=== PATIENT | female | born 1945 | race Caucasian/White ===

== ENCOUNTER 2023-12-16 13:00 | Inpatient (IN) ==
[2023-12-16] MEDS ORDERED: ZOFRAN INJ 4 MG VIAL IVP PRN (17:19)
[2023-12-16 17:25] LABS: BASOPHILS % (AUTO) 0.2 % (0.2-1.0); EOSINOPHILS # (AUTO) 0.1 x10^3/uL (0.0-0.2); HEMATOCRIT 31.3 % (36.0-47.0); HEMOGLOBIN 10.6 g/dL (12.0-16.0); LYMPHOCYTES # (AUTO) 1.4 X10^3/uL (1.3-2.9); LYMPHOCYTES % (AUTO) 16.8 % (21.0-51.0); MEAN CORPUSCULAR HEMOGLOBIN 31.8 pg (27.0-34.0); MEAN CORPUSCULAR HGB CONC 33.8 g/dL (33.0-35.0); MEAN CORPUSCULAR VOLUME 93.9 fL (80.0-100.0); MEAN PLATELET VOLUME 9.2 fL (7.4-11.0); MONOCYTES # (AUTO) 0.5 x10^3/uL (0.3-0.8); MONOCYTES % (AUTO) 6.7 % (0.0-13.0); NEUTROPHILS # (AUTO) 6.1 x10^3/uL (2.2-4.8); NEUTROPHILS % (AUTO) 75.3 % (42.0-75.0); PLATELET COUNT 205 X10^3/uL (150.0-450.0); RED BLOOD COUNT 3.33 X10^6/uL (3.5-5.4); RED CELL DISTRIBUTION WIDTH 13.6 % (11.6-16.5); WHITE BLOOD COUNT 8.1 X10^3/uL (3.6-10.0)
[2023-12-16] MEDS: NS 1,000 ML IV 1,000 ML IV SCH (17:30)
[2023-12-16] MEDS: ROCEPHIN VIAL 1 GRAM 1 G in NS 100 ML IV 100 ML IV SCH (17:30)
[2023-12-16 17:31] LABS: ALANINE AMINOTRANSFERASE 28 Units/L (12-78); ALBUMIN 3.3 g/dL (3.4-5.0); ALKALINE PHOSPHATASE 57 Units/L (46-116); ASPARTATE AMINO TRANSFERASE 23 Units/L (15-37); BLOOD UREA NITROGEN 83 mg/dL (7-18); CALCIUM 9.4 mg/dL (8.5-10.1); CARBON DIOXIDE 23.3 mmol/L (21-32); CHLORIDE 105 mmol/L (98-107); GLUCOSE 107 mg/dL (65-99); SODIUM 137 mmol/L (136-145); TOTAL PROTEIN 6.9 g/dL (6.4-8.2); eGFR NON BLACK RACES 17 (>60)
[2023-12-16 17:57] LABS: BAND NEUTROPHILS % 1 % (0-10); PLATELET MORPHOLOGY COMMENT NORMAL (NORMAL)
[2023-12-16] MEDS: NovoLIN R (or HumuLIN R) IV STA (18:23)
[2023-12-16] MEDS: NS 1,000 ML IV 1,000 ML IV ONE (18:24)
[2023-12-16] MEDS: D50W ABBOJECT SYR IV STA (18:24)
[2023-12-16] MEDS: KAYEXALATE SUSP PO ONE (18:24)
[2023-12-16 18:49] LABS: FREE T4 (FREE THYROXINE) 0.91 ng/dL (0.76-1.46); TSH (3RD GENERATION) 3.255 uIU/mL (0.358-3.74)
[2023-12-16] MEDS ORDERED: CONSULT PHARMACY - POTASSIUM & MAGNESIUM XX SCH (19:00)
[2023-12-16] MEDS: MAG-OX TAB PO ONE (19:25)
[2023-12-16] MEDS: LOPRESSOR TAB 25 MG PO SCH (20:14)
[2023-12-16 20:29] LABS: BILIRUBIN,URINE NEGATIVE (NEGATIVE); BLOOD/HEMOGLOBIN,URINE NEGATIVE (NEGATIVE); GLUCOSE, URINE 1+ (NEGATIVE); KETONES,URINE NEGATIVE (NEGATIVE); LEUKOCYTE ESTERASE ,URINE NEGATIVE (NEGATIVE); NITRITES,URINE NEGATIVE (NEGATIVE); PROTEIN,URINE NEGATIVE (NEGATIVE); UROBILINOGEN,URINE NORMAL (NORMAL)
[2023-12-16 20:41] LABS: APPEARANCE,URINE CLEAR (CLEAR); COLOR,URINE YELLOW (YELLOW)
--- NOTE | 2023-12-17 05:13 | RAD ---
EXAM: CHEST, 1 VIEW HISTORY: ams,weakness; COMPARISON: None available. FINDINGS: The trachea is midline. The cardiac silhouette is unremarkable . The lungs are clear without focal infiltrate or effusion. The bony thorax is unremarkable. IMPRESSION: No acute cardiopulmonary disease. THIS IS AN ELECTRONICALLY VERIFIED FINAL REPORT 12/17/2023 5:10 AM - Electronically signed by Rickey Bourne MD
[2023-12-17] MEDS: SYNTHROID 75 mcg TAB PO SCH (05:32)
[2023-12-17 07:21] LABS: BASOPHILS % (AUTO) 0.8 % (0.2-1.0); EOSINOPHILS # (AUTO) 0.1 x10^3/uL (0.0-0.2); EOSINOPHILS % (AUTO) 1.3 % (0.9-2.9); HEMATOCRIT 28.3 % (36.0-47.0); HEMOGLOBIN 9.5 g/dL (12.0-16.0); LYMPHOCYTES # (AUTO) 1.9 X10^3/uL (1.3-2.9); LYMPHOCYTES % (AUTO) 30.8 % (21.0-51.0); MEAN CORPUSCULAR HEMOGLOBIN 31.4 pg (27.0-34.0); MEAN CORPUSCULAR HGB CONC 33.4 g/dL (33.0-35.0); MEAN PLATELET VOLUME 9.3 fL (7.4-11.0); MONOCYTES # (AUTO) 0.5 x10^3/uL (0.3-0.8); MONOCYTES % (AUTO) 7.3 % (0.0-13.0); NEUTROPHILS # (AUTO) 3.8 x10^3/uL (2.2-4.8); NEUTROPHILS % (AUTO) 59.8 % (42.0-75.0); PLATELET COUNT 152 X10^3/uL (150.0-450.0); RED BLOOD COUNT 3.01 X10^6/uL (3.5-5.4); RED CELL DISTRIBUTION WIDTH 13.8 % (11.6-16.5); WHITE BLOOD COUNT 6.3 X10^3/uL (3.6-10.0)
[2023-12-17 07:30] LABS: ALANINE AMINOTRANSFERASE 19 Units/L (12-78); ALBUMIN 2.5 g/dL (3.4-5.0); ALKALINE PHOSPHATASE 44 Units/L (46-116); ASPARTATE AMINO TRANSFERASE 20 Units/L (15-37); BLOOD UREA NITROGEN 65 mg/dL (7-18); CALCIUM 8.4 mg/dL (8.5-10.1); CARBON DIOXIDE 19.8 mmol/L (21-32); CHLORIDE 111 mmol/L (98-107); COR CA(FOR HYPOALB) 9.6 mg/dL (8.5-10.1); CREATININE 2.18 mg/dL (0.55-1.02); GLUCOSE 76 mg/dL (65-99); SODIUM 140 mmol/L (136-145); TOTAL PROTEIN 5.6 g/dL (6.4-8.2); eGFR NON BLACK RACES 23 (>60)
[2023-12-17 07:35] LABS: POTASSIUM 6.7 mmol/L (3.5-5.1)
--- NOTE | 2023-12-17 08:30 | DR.H&P ---
H&P History & Physical for Day of: H&P Date: 12/16/23 Chief Complaint Chief Complaint: weakness, "urinary tract infection" fall Allergies Allergies Allergy/AdvReac Type Severity Reaction Status Date / Time No Known Drug Allergies Allergy Verified 11/23/18 13:38 History of Present Illness History of Present Illness: PT IS 78 WF, DIRECT ADMIT FOR FAILED OUTPT TREATMENT OF UTI, WEAKNESS WITH RECENT FALL. PT HAS BEEN CONFUSED, FAMILY RELATES TO UTI AND POOR PO INTAKE. PT HAS PMH OF RIGHT HIP REPLACEMENT RECENTLY AND FAMILY CONCERNED ABOUT HIP DUE TO FALLS. PT ALSO HAS HX OF HTN, GERD, ANEMIA AND OA. PT ADMITTED FOR EVALUATION AND TREATMENT OF ACUTE ILLNESS. Past Medical History Past Medical History: GERD, Hypertension and Hypothyroidism Past Surgical History Surgical History: Cholecystectomy Family History Family Medical History: Diabetes Mellitus Social History Does patient currently use any type of tobacco product: No Have you used tobacco products in the last 12 months: No Type of Tobacco Use: None Does any household member use tobacco: No Alcohol Use: None Drug Use: None Medications Home Medications: Home Medications Medication Instructions Recorded Confirmed Type aspirin 81 mg tablet,delayed 81 mg PO DAILY 11/23/18 12/16/23 History release (Kylah Low Dose Aspirin) levothyroxine 75 mcg tablet 75 mg PO DAILY 11/23/18 12/16/23 History cholecalciferol (vitamin D3) 1,250 1,250 mcg PO QWEEK 12/16/23 12/16/23 History mcg (50,000 unit) capsule clopidogrel 75 mg tablet 75 mg PO DAILY 12/16/23 12/16/23 History folic acid 1 mg tablet 1 mg PO DAILY 12/16/23 12/16/23 History magnesium oxide 400 mg (241.3 mg 400 mg PO QDAY 12/16/23 12/16/23 History magnesium) tablet metoprolol tartrate 25 mg tablet 12.5 mg PO BID 12/16/23 12/16/23 History penicillin V potassium 500 mg 500 mg PO TID 12/16/23 12/16/23 History tablet spironolactone 25 mg tablet 25 mg PO DAILY 12/16/23 12/16/23 History Labs 12/17/23 07:08 12/17/23 07:08 Labs: Laboratory WBC 6.3 X10^3/uL (3.6-10.0) 12/17/23 07:08 RBC 3.01 X10^6/uL (3.5-5.4) L 12/17/23 07:08 Hgb 9.5 g/dL (12.0-16.0) L 12/17/23 07:08 Hct 28.3 % (36.0-47.0) L 12/17/23 07:08 MCV 94.0 fL (80.0-100.0) 12/17/23 07:08 MCH 31.4 pg (27.0-34.0) 12/17/23 07:08 MCHC 33.4 g/dL (33.0-35.0) 12/17/23 07:08 RDW 13.8 % (11.6-16.5) 12/17/23 07:08 Plt Count 152 X10^3/uL (150.0-450.0) 12/17/23 07:08 Plt Count Comment Adequate (ADEQUATE) 12/16/23 16:38 MPV 9.3 fL (7.4-11.0) 12/17/23 07:08 Neut % (Auto) 59.8 % (42.0-75.0) 12/17/23 07:08 Lymph % (Auto) 30.8 % (21.0-51.0) 12/17/23 07:08 [place] % (Auto) 7.3 % (0.0-13.0) 12/17/23 07:08 Eos % (Auto) 1.3 % (0.9-2.9) 12/17/23 07:08 Baso % (Auto) 0.8 % (0.2-1.0) 12/17/23 07:08 Neut # (Auto) 3.8 x10^3/uL (2.2-4.8) 12/17/23 07:08 Lymph # (Auto) 1.9 X10^3/uL (1.3-2.9) 12/17/23 07:08 [place] # (Auto) 0.5 x10^3/uL (0.3-0.8) 12/17/23 07:08 Eos # (Auto) 0.1 x10^3/uL (0.0-0.2) 12/17/23 07:08 Baso # (Auto) 0.0 X10^3/uL (0.0-0.1) 12/17/23 07:08 Absolute Nucleated RBC 0.1 /100WBC 12/17/23 07:08 Total Counted 100 12/16/23 16:38 Neutrophils % (Manual) 68 % (39-76) 12/16/23 16:38 Band Neutrophils % 1 % (0-10) 12/16/23 16:38 Lymphocytes % (Manual) 30 % (13-43) 12/16/23 16:38 Monocytes % (Manual) 1 % (4-9) L 12/16/23 16:38 Plt Morphology Comment Normal (NORMAL) 12/16/23 16:38 RBC Morphology Normal (NORMAL) 12/16/23 16:38 Sodium 140 mmol/L (136-145) 12/17/23 07:08 Corrected Sodium TNP 12/17/23 07:08 Potassium 6.7 mmol/L (3.5-5.1) H* 12/17/23 07:08 Chloride 111 mmol/L (98-107) H 12/17/23 07:08 Carbon Dioxide 19.8 mmol/L (21-32) L 12/17/23 07:08 BUN 65 mg/dL (7-18) H 12/17/23 07:08 Creatinine 2.18 mg/dL (0.55-1.02) H 12/17/23 07:08 Est GFR (MDRD) Af Amer 28 (>60) L 12/17/23 07:08 Est GFR (MDRD) Non-Af 23 (>60) L 12/17/23 07:08 Glucose 76 mg/dL (65-99) 12/17/23 07:08 Lactic Acid 0.5 mmol/L (0.4-2.0) 12/16/23 16:38 Calcium 8.4 mg/dL (8.5-10.1) L 12/17/23 07:08 Corrected Calcium 9.6 mg/dL (8.5-10.1) 12/17/23 07:08 Magnesium 1.6 mg/dL (2.0-2.9) L 12/17/23 07:08 Total Bilirubin 0.20 mg/dL (0.2-1.0) 12/17/23 07:08 AST 20 Units/L (15-37) 12/17/23 07:08 ALT 19 Units/L (12-78) 12/17/23 07:08 Alkaline Phosphatase 44 Units/L (46-116) L 12/17/23 07:08 Total Protein 5.6 g/dL (6.4-8.2) L 12/17/23 07:08 Albumin 2.5 g/dL (3.4-5.0) L 12/17/23 07:08 Globulin 3.1 g/dL (2.5-4.5) 12/17/23 07:08 Albumin/Globulin Ratio 0.8 Ratio (1.1-2.1) L 12/17/23 07:08 Free T4 0.91 ng/dL (0.76-1.46) 12/16/23 16:38 TSH 3rd Generation 3.255 uIU/mL (0.358-3.74) 12/16/23 16:38 Specimen Type Clean catch urine 12/16/23 20:06 Urine Color Yellow (YELLOW) 12/16/23 20:06 Urine Appearance Clear (CLEAR) 12/16/23 20:06 Urine pH 5.0 (5.0 - 8.0) 12/16/23 20:06 Ur Specific [place] 1.015 (1.000-1.030) 12/16/23 20:06 Urine Protein Negative (NEGATIVE) 12/16/23 20:06 Urine Glucose (UA) 1+ (NEGATIVE) 12/16/23 20:06 Urine Ketones Negative (NEGATIVE) 12/16/23 20:06 Urine Blood Negative (NEGATIVE) 12/16/23 20:06 Urine Nitrite Negative (NEGATIVE) 12/16/23 20:06 Urine Bilirubin Negative (NEGATIVE) 12/16/23 20:06 Urine Urobilinogen Normal (NORMAL) 12/16/23 20:06 Ur Leukocyte Esterase Negative (NEGATIVE) 12/16/23 20:06 Review of Systems Constitutional: Weakness Eyes: No Symptoms Reported ENT: No Symptoms Reported Respiratory: Shortness of Breath Cardiovascular: Palpitations Gastrointestinal: Other (POOR PO INTAKE) Genitourinary: Dysuria and Other (RECENT UTI) Musculoskeletal: Back Pain and Leg Pain Skin: No Symptoms Reported Neurological: Weakness and Confusion (MILD) Physical Exam Vital Signs: Vital Signs Temperature 98.0 F Temperature 97.8 F Pulse Rate [Left Brachial] 62 Pulse Rate [Left Brachial] 67 Respiratory Rate 18 Respiratory Rate 18 Blood Pressure [Left Arm] 103/51 Blood Pressure [Left Arm] 114/55 O2 Sat by Pulse Oximetry 97 O2 Sat by Pulse Oximetry 96 Oriented: Person Eyes: Normal Ear: Normal Nose: Normal Throat: Normal Respiratory: RLL Diminished and LLL Diminished Cardiovascular: Normal Auscultation: Bowel Sounds: Normal Palpation: Normal Tenderness: Suprapubic and Mild Skin: Decreased Turgur Musculoskeletal: Back:Lumbar Affect: Depressed Speech Pattern: Clear Assessment/Plan (1) Urinary tract infection: Narrative Support Text: ADMIT, URINE CULTURE AND BLOOD CULTURE ON ADMISSION CXR, HOLD ALDACTONE HOME MEDICATION KAYEXALATE PO PER DR JAMES'S ORDERS BP CONTROL, IV HYDRATION I&OS Status: Acute (2) Confusion: Status: Acute (3) Weakness: Status: Acute (4) Acute hyperkalemia: Status: Acute (5) Dehydration: Status: Acute (6) GERD (gastroesophageal reflux disease): Status: Acute
--- NOTE | 2023-12-17 08:37 | EKG ---
Test Reason : hyperkalemia Blood Pressure : */* mmHG Vent. Rate : 133 BPM Atrial Rate : 133 BPM P-R Int : * ms QRS Dur : 124 ms QT Int : 278 ms P-R-T Axes : * -41 -85 degrees QTc Int : 413 ms bad baseline artifact- NSR 65 Left axis deviation Abnormal ECG No previous ECGs available Confirmed by Jose C Cooper MD ([id number]) on 12/17/2023 9:31:40 AM Referred By: Confirmed By: Jose C Cooper MD
[2023-12-17] MEDS ORDERED: VITAMIN D3 125 mcg (5,000 UNITS) PO SCH (09:00)
[2023-12-17] MEDS ORDERED: ALDACTONE TAB 25 MG PO SCH (09:00)
[2023-12-17] MEDS: FOLIC ACID TAB 1 MG PO SCH (10:00)
[2023-12-17] MEDS: PLAVIX PO SCH (10:00)
[2023-12-17] MEDS: KAYEXALATE SUSP PO NR (10:00)
[2023-12-17] MEDS: MAG-OX TAB PO SCH (10:15)
--- NOTE | 2023-12-17 10:26 | CT ---
EXAM:BRAIN W/O CONHISTORY:increased weakness, confusion ;COMPARISON:Head CT 09/21/2023TECHNIQUE:Multiple CT axial images of the head were obtained without IV contrast. Coronal and sagittal images were reconstructed. Dose reduction techniques included Automated Exposure Control (AEC) and adjustment of mA and kV.FINDINGS:Age-related findings include central and cortical atrophy with areas of low density in the periventricular white matter compatible with micro-ischemic changes. There is no mass, shift, or hemorrhage. Cerebellar tonsils are at an appropriate level. No fluid in the sinuses or mucosal thickening to suggest sinusitis. There is no mastoid effusion.IMPRESSION:1. No acute findingTHIS IS AN ELECTRONICALLY VERIFIED FINAL REPORT12/17/2023 10:23 AM - Electronically signed by Bryce Brito MD
--- NOTE | 2023-12-17 12:11 | PCM.PROG ---
Progress Note Progress Note for Day of Date of Exam: 12/17/23 Subjective Subjective: PT IS 78 WF, DIRECT ADMIT YESTERDAY FOR FAILED OUTPT TREATMENT OF UTI, WEAKNESS WITH RECENT FALL. PT HAS BEEN CONFUSED, FAMILY RELATES TO UTI AND POOR PO INTAKE. PT HAS PMH OF RIGHT HIP REPLACEMENT RECENTLY AND FAMILY CONCERNED ABOUT HIP DUE TO FALLS. UPON ADMISSION, PT LABS REVEALED WBC 8.1, HGB 10.6. POTASSIUM 7.0, BUN 83/CREATININE 2.9, MAGNESIUM 1.7. WE TREATED THE CRITICAL POTASSIUM LEVEL WITH AMP OF D50, 5 UNITS OF REGULAR INSULIN IV, 15G KAYEXALATE, AND 1L BOLUS. WE ALSO HELD SPIROLACTONE AND STARTED THE PATIENT ON MAGNESIUM REPLACEMENT, ABX, IV HYDRATION. WE OBTAINED A CHEST XRAY THAT SHOWED NO ACUTE CARDIOPULMONARY DISEASE. WE ALSO OBTAIEND A UA- +1 GLUCOSE, OTHERWISE NORMAL AND AN EKG THAT SHOWED "BAD BASELINE ARTIFACT- NSR 65, LEFT AXIS DEVIATION, ABNORMAL ECG, NO PREVIOUS ECGS AVALIABLE." BLOOD/URINE CULTURES AND STOOL STUDIES ORDERED AND PENDING AT THIS TIME. AM LABS SHOWED WBC, 6.3, HGB 9.5, POTASSIUM 6.7, BUN 65/CREATININE 2.18, MAGNESIUM 1.6. MORNING VITALS: 103 /51-62-18-98.0-97% ROOM AIR. Past Medical Family Social History Allergies: Allergies No Known Drug Allergies Allergy (Verified 11/23/18 13:38) Vital Signs and I&O's Vital Signs: Vital Signs Temperature 98.0 F Temperature 97.8 F Pulse Rate [Left Brachial] 62 Pulse Rate [Left Brachial] 67 Respiratory Rate 18 Respiratory Rate 18 Blood Pressure [Left Arm] 103/51 Blood Pressure [Left Arm] 114/55 O2 Sat by Pulse Oximetry 97 O2 Sat by Pulse Oximetry 96 Intake and Output: Intake & Output 12/14/23 12/15/23 12/16/23 12/17/23 11:59 11:59 11:59 11:59 Intake Total 2406 / 2406 Output Total 300 / 300 Balance 2105 / 2105 Physical Exam Oriented: Person Eyes: Normal Ear: Normal Nose: Normal Throat: Normal Cardiovascular: Normal Auscultation: Bowel Sounds: Normal Tenderness: Suprapubic and Mild Skin: Decreased [place] Musculoskeletal: Back:Lumbar Affect: Depressed Speech Pattern: Clear Laboratory and Diagnostics 12/17/23 07:08 12/17/23 07:08 Labs: Laboratory WBC 6.3 X10^3/uL (3.6-10.0) 12/17/23 07:08 RBC 3.01 X10^6/uL (3.5-5.4) L 12/17/23 07:08 Hgb 9.5 g/dL (12.0-16.0) L 12/17/23 07:08 Hct 28.3 % (36.0-47.0) L 12/17/23 07:08 MCV 94.0 fL (80.0-100.0) 12/17/23 07:08 MCH 31.4 pg (27.0-34.0) 12/17/23 07:08 MCHC 33.4 g/dL (33.0-35.0) 12/17/23 07:08 RDW 13.8 % (11.6-16.5) 12/17/23 07:08 Plt Count 152 X10^3/uL (150.0-450.0) 12/17/23 07:08 Plt Count Comment Adequate (ADEQUATE) 12/16/23 16:38 MPV 9.3 fL (7.4-11.0) 12/17/23 07:08 Neut % (Auto) 59.8 % (42.0-75.0) 12/17/23 07:08 Lymph % (Auto) 30.8 % (21.0-51.0) 12/17/23 07:08 [place] % (Auto) 7.3 % (0.0-13.0) 12/17/23 07:08 Eos % (Auto) 1.3 % (0.9-2.9) 12/17/23 07:08 Baso % (Auto) 0.8 % (0.2-1.0) 12/17/23 07:08 Neut # (Auto) 3.8 x10^3/uL (2.2-4.8) 12/17/23 07:08 Lymph # (Auto) 1.9 X10^3/uL (1.3-2.9) 12/17/23 07:08 [place] # (Auto) 0.5 x10^3/uL (0.3-0.8) 12/17/23 07:08 Eos # (Auto) 0.1 x10^3/uL (0.0-0.2) 12/17/23 07:08 Baso # (Auto) 0.0 X10^3/uL (0.0-0.1) 12/17/23 07:08 Absolute Nucleated RBC 0.1 /100WBC 12/17/23 07:08 Total Counted 100 12/16/23 16:38 Neutrophils % (Manual) 68 % (39-76) 12/16/23 16:38 Band Neutrophils % 1 % (0-10) 12/16/23 16:38 Lymphocytes % (Manual) 30 % (13-43) 12/16/23 16:38 Monocytes % (Manual) 1 % (4-9) L 12/16/23 16:38 Plt Morphology Comment Normal (NORMAL) 12/16/23 16:38 RBC Morphology Normal (NORMAL) 12/16/23 16:38 Sodium 140 mmol/L (136-145) 12/17/23 07:08 Corrected Sodium TNP 12/17/23 07:08 Potassium 6.7 mmol/L (3.5-5.1) H* 12/17/23 07:08 Chloride 111 mmol/L (98-107) H 12/17/23 07:08 Carbon Dioxide 19.8 mmol/L (21-32) L 12/17/23 07:08 BUN 65 mg/dL (7-18) H 12/17/23 07:08 Creatinine 2.18 mg/dL (0.55-1.02) H 12/17/23 07:08 Est GFR (MDRD) Af Amer 28 (>60) L 12/17/23 07:08 Est GFR (MDRD) Non-Af 23 (>60) L 12/17/23 07:08 Glucose 76 mg/dL (65-99) 12/17/23 07:08 Lactic Acid 0.5 mmol/L (0.4-2.0) 12/16/23 16:38 Calcium 8.4 mg/dL (8.5-10.1) L 12/17/23 07:08 Corrected Calcium 9.6 mg/dL (8.5-10.1) 12/17/23 07:08 Magnesium 1.6 mg/dL (2.0-2.9) L 12/17/23 07:08 Total Bilirubin 0.20 mg/dL (0.2-1.0) 12/17/23 07:08 AST 20 Units/L (15-37) 12/17/23 07:08 ALT 19 Units/L (12-78) 12/17/23 07:08 Alkaline Phosphatase 44 Units/L (46-116) L 12/17/23 07:08 Creatine Kinase 40 Units/L (26-192) 12/17/23 07:08 Troponin I High Sens 16.9 ng/L (4.0-60.0) 12/17/23 07:08 Total Protein 5.6 g/dL (6.4-8.2) L 12/17/23 07:08 Albumin 2.5 g/dL (3.4-5.0) L 12/17/23 07:08 Globulin 3.1 g/dL (2.5-4.5) 12/17/23 07:08 Albumin/Globulin Ratio 0.8 Ratio (1.1-2.1) L 12/17/23 07:08 Free T4 0.91 ng/dL (0.76-1.46) 12/16/23 16:38 TSH 3rd Generation 3.255 uIU/mL (0.358-3.74) 12/16/23 16:38 Specimen Type Clean catch urine 12/16/23 20:06 Urine Color Yellow (YELLOW) 12/16/23 20:06 Urine Appearance Clear (CLEAR) 12/16/23 20:06 Urine pH 5.0 (5.0 - 8.0) 12/16/23 20:06 Ur Specific [place] 1.015 (1.000-1.030) 12/16/23 20:06 Urine Protein Negative (NEGATIVE) 12/16/23 20:06 Urine Glucose (UA) 1+ (NEGATIVE) 12/16/23 20:06 Urine Ketones Negative (NEGATIVE) 12/16/23 20: Urine Blood Negative (NEGATIVE) 12/16/23 20: Urine Nitrite Negative (NEGATIVE) 12/16/23 20: Urine Bilirubin Negative (NEGATIVE) 12/16/23 20:06 Urine Urobilinogen Normal (NORMAL) 12/16/23 20:06 Ur Leukocyte Esterase Negative (NEGATIVE) 12/16/23 20:06 Plan (1) Urinary tract infection: Status: Acute Plan: REPEAT KAYEXALATE 15G X1DOSE, OBTAIN CT HEAD, XRAY RIGHT HIP, CONSULT PT FOR EVAL. CONTINUE IV HYDRATION, ABX, CONTINUE HOME MEDICATIONS. (2) Confusion: Status: Acute (3) Weakness: Status: Acute (4) Acute hyperkalemia: Status: Acute (5) Dehydration: Status: Acute (6) GERD (gastroesophageal reflux disease): Status: Acute
[2023-12-17 18:47] VITALS: BMI 26.2
[2023-12-17 19:35] LABS: CRYPTOSPORIDIUM PARVUM ANTIGEN NEGATIVE (NEGATIVE); GIARDIA LAMBLIA ANTIGEN NEGATIVE (NEGATIVE)
[2023-12-17] MEDS: ASPIRIN 81 MG CHEWTAB PO SCH (20:11)
[2023-12-18 05:26] LABS: BASOPHILS % (AUTO) 0.7 % (0.2-1.0); EOSINOPHILS # (AUTO) 0.1 x10^3/uL (0.0-0.2); EOSINOPHILS % (AUTO) 2.2 % (0.9-2.9); HEMATOCRIT 27.9 % (36.0-47.0); HEMOGLOBIN 9.3 g/dL (12.0-16.0); LYMPHOCYTES # (AUTO) 1.3 X10^3/uL (1.3-2.9); LYMPHOCYTES % (AUTO) 23.3 % (21.0-51.0); MEAN CORPUSCULAR HEMOGLOBIN 31.3 pg (27.0-34.0); MEAN CORPUSCULAR HGB CONC 33.3 g/dL (33.0-35.0); MEAN PLATELET VOLUME 9.2 fL (7.4-11.0); MONOCYTES # (AUTO) 0.5 x10^3/uL (0.3-0.8); MONOCYTES % (AUTO) 8.6 % (0.0-13.0); NEUTROPHILS # (AUTO) 3.6 x10^3/uL (2.2-4.8); NEUTROPHILS % (AUTO) 65.2 % (42.0-75.0); PLATELET COUNT 150 X10^3/uL (150.0-450.0); RED BLOOD COUNT 2.96 X10^6/uL (3.5-5.4); RED CELL DISTRIBUTION WIDTH 13.5 % (11.6-16.5); WHITE BLOOD COUNT 5.5 X10^3/uL (3.6-10.0)
[2023-12-18 05:52] LABS: ALANINE AMINOTRANSFERASE 18 Units/L (12-78); ALBUMIN 2.4 g/dL (3.4-5.0); ALKALINE PHOSPHATASE 39 Units/L (46-116); ASPARTATE AMINO TRANSFERASE 16 Units/L (15-37); BLOOD UREA NITROGEN 45 mg/dL (7-18); CALCIUM 8.3 mg/dL (8.5-10.1); CARBON DIOXIDE 24.5 mmol/L (21-32); CHLORIDE 109 mmol/L (98-107); COR CA(FOR HYPOALB) 9.6 mg/dL (8.5-10.1); CREATININE 1.75 mg/dL (0.55-1.02); GLUCOSE 81 mg/dL (65-99); MAGNESIUM 1.3 mg/dL (2.0-2.9); SODIUM 140 mmol/L (136-145); TOTAL PROTEIN 5.5 g/dL (6.4-8.2); eGFR NON BLACK RACES 30 (>60)
[2023-12-18 06:07] LABS: POTASSIUM 5.8 mmol/L (3.5-5.1)
--- NOTE | 2023-12-18 06:34 | RAD ---
EXAM: Right hip three views HISTORY: Hip pain COMPARISON: October 07, 2023 FINDINGS: Right hip arthroplasty components are now present, related anatomically without evidence for displac ement or fracture. IMPRESSION: Interval right BRAIN; no postoperative abnormality demonstrated. THIS IS AN ELECTRONICALLY VERIFIED FINAL REPORT 12/18/2023 6:30 AM - Electronically signed by Rolly Cohen MD
[2023-12-18] MEDS ORDERED: CONSULT PHARMACY - POTASSIUM & MAGNESIUM XX SCH (07:00)
[2023-12-18] MEDS: KAYEXALATE SUSP PO SCH (10:16)
[2023-12-18] MEDS: MAG-OX TAB PO SCH (10:16)
--- NOTE | 2023-12-18 11:31 | PCM.PROG ---
Progress Note Progress Note for Day of Date of Exam: 12/18/23 Subjective Subjective: Patient seen at bedside, no acute events overnight. She is currently being treated for hyperkalemia, hypomagnesemia, JEFF and UTI. She also had some confusion. She is alert & oriented today. She states she is feeling better. She recently had right hip arthroplasty in [place]. She had some diarrhea yesterday after kayexalate. She has been ambulating with assistance. Labs/imaging reviewed -Hgb 9.3 K:5.8 Mag 1.3 BUN/Cr: 45/1.75 -Urine Cx: no growth -Stool +FOBT +WBC -CT-head: no acute process Plan: continue mag replacement, Kayexalate. Continue hydration. Continue IV Rocephin, follow final Cx. Continue home medications. PT/OT as tolerated. Monitor AM labs/imaging. Past Medical Family Social History Allergies: Allergies No Known Drug Allergies Allergy (Verified 11/23/18 13:38) Vital Signs and I&O's Vital Signs: Vital Signs Temperature 98.0 F Temperature 97.9 F Pulse Rate [Left Brachial] 67 Pulse Rate [Left Brachial] 64 Respiratory Rate 18 Respiratory Rate 20 Blood Pressure [Left Arm] 121/58 Blood Pressure [Left Arm] 114/56 O2 Sat by Pulse Oximetry 99 O2 Sat by Pulse Oximetry 96 Intake and Output: Intake & Output 12/15/23 12/16/23 12/17/23 12/18/23 23:59 23:59 23:59 23:59 Intake Total 1974 2205 / 2205 1328 / 1328 Output Total 300 / 300 Balance 1974 1905 / 1905 1328 / 1328 Physical Exam Oriented: Person Eyes: Normal Ear: Normal Nose: Normal Throat: Normal Cardiovascular: Normal Auscultation: Bowel Sounds: Normal Palpation: Normal Tenderness: Normal Skin: Decreased Turgur Musculoskeletal: Back:Lumbar Mood Description: Calm Affect: Normal Speech Pattern: Clear and Appropriate Laboratory and Diagnostics 12/18/23 05:08 12/18/23 05:08 Labs: 12/17/23 18:45 Stool Stool Culture - Preliminary 12/17/23 18:45 Stool - Final 12/16/23 20:06 Urine,Clean Catch Urine Culture - Preliminary 12/16/23 17:02 Blood Blood Culture - Preliminary 12/16/23 16:38 Blood Blood Culture - Preliminary Laboratory WBC 5.5 X10^3/uL (3.6-10.0) 12/18/23 05:08 RBC 2.96 X10^6/uL (3.5-5.4) L 12/18/23 05:08 Hgb 9.3 g/dL (12.0-16.0) L 12/18/23 05:08 Hct 27.9 % (36.0-47.0) L 12/18/23 05:08 MCV 94.0 fL (80.0-100.0) 12/18/23 05:08 MCH 31.3 pg (27.0-34.0) 12/18/23 05:08 MCHC 33.3 g/dL (33.0-35.0) 12/18/23 05:08 RDW 13.5 % (11.6-16.5) 12/18/23 05:08 Plt Count 150 X10^3/uL (150.0-450.0) 12/18/23 05:08 Plt Count Comment Adequate (ADEQUATE) 12/16/23 16:38 MPV 9.2 fL (7.4-11.0) 12/18/23 05:08 Neut % (Auto) 65.2 % (42.0-75.0) 12/18/23 05:08 Lymph % (Auto) 23.3 % (21.0-51.0) 12/18/23 05:08 [place] % (Auto) 8.6 % (0.0-13.0) 12/18/23 05:08 Eos % (Auto) 2.2 % (0.9-2.9) 12/18/23 05:08 Baso % (Auto) 0.7 % (0.2-1.0) 12/18/23 05:08 Neut # (Auto) 3.6 x10^3/uL (2.2-4.8) 12/18/23 05:08 Lymph # (Auto) 1.3 X10^3/uL (1.3-2.9) 12/18/23 05:08 [place] # (Auto) 0.5 x10^3/uL (0.3-0.8) 12/18/23 05:08 Eos # (Auto) 0.1 x10^3/uL (0.0-0.2) 12/18/23 05:08 Baso # (Auto) 0.0 X10^3/uL (0.0-0.1) 12/18/23 05:08 Absolute Nucleated RBC 0.0 /100WBC 12/18/23 05:08 Total Counted 100 12/16/23 16:38 Neutrophils % (Manual) 68 % (39-76) 12/16/23 16:38 Band Neutrophils % 1 % (0-10) 12/16/23 16:38 Lymphocytes % (Manual) 30 % (13-43) 12/16/23 16:38 Monocytes % (Manual) 1 % (4-9) L 12/16/23 16:38 Plt Morphology Comment Normal (NORMAL) 12/16/23 16:38 RBC Morphology Normal (NORMAL) 12/16/23 16:38 Sodium 140 mmol/L (136-145) 12/18/23 05:08 Corrected Sodium TNP 12/18/23 05:08 Potassium 5.8 mmol/L (3.5-5.1) H 12/18/23 05:08 Chloride 109 mmol/L (98-107) H 12/18/23 05:08 Carbon Dioxide 24.5 mmol/L (21-32) 12/18/23 05:08 BUN 45 mg/dL (7-18) H 12/18/23 05:08 Creatinine 1.75 mg/dL (0.55-1.02) H 12/18/23 05:08 Est GFR (MDRD) Af Amer 36 (>60) L 12/18/23 05:08 Est GFR (MDRD) Non-Af 30 (>60) L 12/18/23 05:08 Glucose 81 mg/dL (65-99) 12/18/23 05:08 Lactic Acid 0.5 mmol/L (0.4-2.0) 12/16/23 16:38 Calcium 8.3 mg/dL (8.5-10.1) L 12/18/23 05:08 Corrected Calcium 9.6 mg/dL (8.5-10.1) 12/18/23 05:08 Magnesium 1.3 mg/dL (2.0-2.9) L 12/18/23 05:08 Total Bilirubin 0.20 mg/dL (0.2-1.0) 12/18/23 05:08 AST 16 Units/L (15-37) 12/18/23 05:08 ALT 18 Units/L (12-78) 12/18/23 05:08 Alkaline Phosphatase 39 Units/L (46-116) L 12/18/23 05:08 Creatine Kinase 40 Units/L (26-192) 12/17/23 07:08 Troponin I High Sens 16.9 ng/L (4.0-60.0) 12/17/23 07:08 Total Protein 5.5 g/dL (6.4-8.2) L 12/18/23 05:08 Albumin 2.4 g/dL (3.4-5.0) L 12/18/23 05:08 Globulin 3.1 g/dL (2.5-4.5) 12/18/23 05:08 Albumin/Globulin Ratio 0.8 Ratio (1.1-2.1) L 12/18/23 05:08 Free T4 0.91 ng/dL (0.76-1.46) 12/16/23 16:38 TSH 3rd Generation 3.255 uIU/mL (0.358-3.74) 12/16/23 16:38 Specimen Type Clean catch urine 12/16/23 20:06 Urine Color Yellow (YELLOW) 12/16/23 20:06 Urine Appearance Clear (CLEAR) 12/16/23 20:06 Urine pH 5.0 (5.0 - 8.0) 12/16/23 20:06 Ur Specific [place] 1.015 (1.000-1.030) 12/16/23 20:06 Urine Protein Negative (NEGATIVE) 12/16/23 20:06 Urine Glucose (UA) 1+ (NEGATIVE) 12/16/23 20:06 Urine Ketones Negative (NEGATIVE) 12/16/23 20:06 Urine Blood Negative (NEGATIVE) 12/16/23 20:06 Urine Nitrite Negative (NEGATIVE) 12/16/23 20:06 Urine Bilirubin Negative (NEGATIVE) 12/16/23 20:06 Urine Urobilinogen Normal (NORMAL) 12/16/23 20:06 Ur Leukocyte Esterase Negative (NEGATIVE) 12/16/23 20:06 Stl Occult Blood (IFOB) Positive (NEGATIVE) A 12/17/23 18:45 Stool for White Cells Positive (NEGATIVE) A 12/17/23 18:45 Stl C. diff Tox B Gene Negative (NEGATIVE) 12/17/23 18:45 Stl C. diff [id number] Presumptive negative (NEGATIVE) 12/17/23 18:45 Cryptosporid parvum Ag Negative (NEGATIVE) 12/17/23 18:45 Giardia lamblia Ag Negative (NEGATIVE) 12/17/23 18:45 Plan (1) Urinary tract infection: Status: Acute (2) Confusion: Status: Acute (3) Weakness: Status: Acute (4) Acute hyperkalemia: Status: Acute (5) Dehydration: Status: Acute (6) GERD (gastroesophageal reflux disease): Status: Acute (7) Hypomagnesemia: Status: Acute
[2023-12-19 05:16] LABS: BASOPHILS % (AUTO) 0.7 % (0.2-1.0); EOSINOPHILS # (AUTO) 0.2 x10^3/uL (0.0-0.2); EOSINOPHILS % (AUTO) 2.7 % (0.9-2.9); HEMATOCRIT 28.3 % (36.0-47.0); HEMOGLOBIN 9.6 g/dL (12.0-16.0); LYMPHOCYTES # (AUTO) 1.2 X10^3/uL (1.3-2.9); LYMPHOCYTES % (AUTO) 19.3 % (21.0-51.0); MEAN CORPUSCULAR HEMOGLOBIN 31.4 pg (27.0-34.0); MEAN CORPUSCULAR HGB CONC 33.7 g/dL (33.0-35.0); MEAN PLATELET VOLUME 9.1 fL (7.4-11.0); MONOCYTES # (AUTO) 0.5 x10^3/uL (0.3-0.8); MONOCYTES % (AUTO) 8.4 % (0.0-13.0); NEUTROPHILS # (AUTO) 4.5 x10^3/uL (2.2-4.8); NEUTROPHILS % (AUTO) 68.9 % (42.0-75.0); PLATELET COUNT 150 X10^3/uL (150.0-450.0); RED BLOOD COUNT 3.05 X10^6/uL (3.5-5.4); RED CELL DISTRIBUTION WIDTH 13.4 % (11.6-16.5); WHITE BLOOD COUNT 6.5 X10^3/uL (3.6-10.0)
[2023-12-19 05:24] LABS: ALANINE AMINOTRANSFERASE 18 Units/L (12-78); ALBUMIN 2.3 g/dL (3.4-5.0); ALKALINE PHOSPHATASE 40 Units/L (46-116); ASPARTATE AMINO TRANSFERASE 15 Units/L (15-37); BLOOD UREA NITROGEN 30 mg/dL (7-18); CALCIUM 8.2 mg/dL (8.5-10.1); CARBON DIOXIDE 23.3 mmol/L (21-32); CHLORIDE 110 mmol/L (98-107); COR CA(FOR HYPOALB) 9.6 mg/dL (8.5-10.1); CREATININE 1.45 mg/dL (0.55-1.02); GLUCOSE 80 mg/dL (65-99); MAGNESIUM 1.3 mg/dL (2.0-2.9); SODIUM 142 mmol/L (136-145); TOTAL PROTEIN 5.3 g/dL (6.4-8.2); eGFR NON BLACK RACES 37 (>60)
[2023-12-19 05:37] LABS: POTASSIUM 5.2 mmol/L (3.5-5.1)
[2023-12-19] MEDS ORDERED: CONSULT PHARMACY - POTASSIUM & MAGNESIUM XX SCH (06:00)
[2023-12-19 08:05] VITALS: BP 129/60; PULSE 80; RESP 18; TEMP 98.2; O2SAT 98
[2023-12-19] MEDS: MAGNESIUM SULFATE 1 GRAM/100 mL PREMIX 1 G/100 ML BAG IV SCH (09:11)
[2023-12-19] MEDS ORDERED: MAG-OX TAB PO SCH (11:00)
[2023-12-19] MEDS ORDERED: NS 1,000 ML IV 1,000 ML with MAGNESIUM SULFATE 50% INJ VIAL 1 G IV SCH (13:00)
== END 2023-12-19 12:02 | disposition home or self-care (01) | DRG 690 ==
LOC: MED/SURG → OBSVTOIN 15:43
PROVIDERS: ADMIT Internal Medicine; ATTEND Internal Medicine
DX: E83.42 Hypomagnesemia; N39.0 Urinary tract infection, site not specified; R19.7 Diarrhea, unspecified; R53.1 Weakness; R94.31 Abnormal electrocardiogram [ECG] [EKG]; Z66 Do not resuscitate; N17.8 Other acute kidney failure; I10 Essential (primary) hypertension; E86.0 Dehydration; K21.9 Gastro-esophageal reflux disease without esophagitis; E03.8 Other specified hypothyroidism; M25.551 Pain in right hip; R41.0 Disorientation, unspecified; W18.39XA Other fall on same level, initial encounter; E87.5 Hyperkalemia